=== PATIENT | female | born 1965 | race Two or more races ===

== ENCOUNTER 2017-12-11 11:47 | Outpatient (CLI) | payer OTHER | END 2017-12-11 11:50 | disposition home or self-care (01) | LOC: RAD 11:47 | DX: M25.519 Pain in unspecified shoulder (principal); M25.561 Pain in right knee ==

== ENCOUNTER 2017-12-11 11:54 | Outpatient (CLI) | payer OTHER | END 2017-12-11 12:03 | disposition home or self-care (01) | LOC: SONOGRAMA 11:54 | DX: M25.511 Pain in right shoulder (principal); N18.3 Chronic kidney disease, stage 3 (moderate) ==

== ENCOUNTER 2018-04-10 08:53 | Outpatient (CLI) | payer OTHER | END 2018-04-10 08:59 | disposition home or self-care (01) | LOC: SONOGRAMA 08:53 → MAMO-SONO 09:45 | DX: N18.3 Chronic kidney disease, stage 3 (moderate) (principal) ==